=== PATIENT | female | born 1980 | race African-American/Black ===

== ENCOUNTER 2019-09-23 05:05 | Emergency (ER) | payer SELFPAY ==
[~2019-09-23] VITALS: Ht 180.3 cm; Wt 100.0 kg
[2019-09-23 05:08] VITALS: TEMP 98.4
[2019-09-23] MEDS ORDERED: ZOLOFT 100MG100 MG PO (05:14)
[2019-09-23] MEDS ORDERED: LAMICTAL200 MG PO (05:14)
[2019-09-23 05:43] LABS: BASO % 0.4 % (0.0-2.0); EOS # 0.1 (0.0-0.7); EOS % 1.8 % (0-4.0); GRAN # 3.7 (1.4-6.5); GRAN % 50.2 % (42.2-75.2); HEMATOCRIT 38.6 % (37.0-47.0); HEMOGLOBIN 12.5 g/dl (12.5-16.0); LYMPH # 2.9 (1.2-3.4); LYMPH % 39.7 % (20.0-51.0); MEAN CELL VOLUME 89 fl (80.0-100.0); MEAN CORPUSCULAR HEMOGLOBIN 29 pg (27.0-31.0); MEAN CORPUSCULAR HGB CONC 32 g/dl (33.0-37.0); MEAN PLATELET VOLUME 10.5 fl (7.4-10.4); MONO # 0.6 (0.1-0.6); MONO % 7.6 % (1.7-9.3); PLATELET COUNT 226 K/mm3 (130-400); RED BLOOD COUNT 4.33 M/mm3 (4.10-5.30); REDCELL DISTRIBUTION WIDTH-CV 13.6 % (11.5-14.5)
[2019-09-23 05:57] LABS: ALANINE AMINOTRANSFERASE 14 U/L (4-34); ALBUMIN 4.2 gm/dL (3.5-5.0); ALKALINE PHOSPHATASE 129 U/L (50-136); ANION GAP 6 mmol/L (7-16); AST,SGOT 23 U/L (15-37); BILIRUBIN,TOTAL 0.5 mg/dL (0.0-1.0); BLOOD UREA NITROGEN 12 mg/dL (7-17); C-REACTIVE PROTEIN 1.1 mg/dL (0.0-0.9); CARBON DIOXIDE 21 mmol/L (22-30); CHLORIDE 109 mmol/L (98-107); CREATININE, serum 0.76 (0.52-1.25); GLUCOSE 94 mg/dL (74-106); LIPASE 157 U/L (23-300); POTASSIUM 3.7 mmol/L (3.4-5.0); SODIUM 135 mmol/L (137-145); TOTAL PROTEIN 7.2 gm/dL (6.4-8.2)
[2019-09-23 06:06] LABS: TROPONIN-I < 0.012 ng/mL (0.000-0.035)
[2019-09-23 09:06] VITALS: BP 126/80; PULSE 77
== END 2019-09-23 09:12 | disposition home or self-care (01) ==
LOC: COL.ER 05:05
PROVIDERS: Emergency Medicine
DX: K21.9 Gastro-esophageal reflux disease without esophagitis (principal); R07.9 Chest pain, unspecified; F41.8 Other specified anxiety disorders; F17.210 Nicotine dependence, cigarettes, uncomplicated

== ENCOUNTER → 2019-09-29 | Outpatient (CLI) | payer SELFPAY ==
[~2019-09-29] MED LIST: LAMICTAL200 MG PO; ZOLOFT 100MG100 MG PO
== END ==
LOC: COL.VAS 08:41
DX: I07.1 Rheumatic tricuspid insufficiency (principal)

== ENCOUNTER 2020-03-29 17:05 | Emergency (ER) | payer SELFPAY ==
[~2020-03-29] VITALS: Ht 182.9 cm; Wt 90.9 kg
[2020-03-29 17:19] VITALS: BP 120/77; TEMP 97.4
[2020-03-29 19:46] LABS: COLLECTION METHOD CLEAN CATCH
[2020-03-29 20:03] LABS: MUCOUS Present /lpf; PH 6 (5-8); URINE APPEARANCE Hazy; URINE BACTERIA None Seen /hpf; URINE BILIRUBIN Negative (NEGATIVE); URINE BLOOD Negative (NEGATIVE); URINE COLOR Yellow; URINE GLUCOSE Negative (NEGATIVE); URINE KETONE Negative (NEGATIVE); URINE LEUKOCYTE ESTERASE 2+ (NEGATIVE); URINE NITRATE Negative (NEGATIVE); URINE PROTEIN(semi-quant) Negative (NEGATIVE)
[2020-03-29] MEDS ORDERED: FLAGYL500 MG PO (20:33)
[2020-03-29 20:41] VITALS: PULSE 82
== END 2020-03-29 20:44 | disposition home or self-care (01) ==
LOC: COL.ER 17:05
PROVIDERS: Emergency Medicine
DX: N76.0 Acute vaginitis (principal); A59.01 Trichomonal vulvovaginitis; Z32.02 Encounter for pregnancy test, result negative
CPT/HCPCS: J0696

== ENCOUNTER 2020-07-23 12:39 | Emergency (ER) | payer SELFPAY ==
[~2020-07-23] VITALS: Ht 182.9 cm; Wt 86.4 kg
[2020-07-23 12:39] VITALS: BP 120/83; TEMP 98.4
[~2020-07-23 12:39] MED LIST changes: +FLAGYL500 MG PO
[2020-07-23 13:30] LABS: BASO % 0.8 % (0.0-2.0); EOS # 0.1 (0.0-0.7); EOS % 2.6 % (0-4.0); GRAN # 2.8 (1.4-6.5); GRAN % 54.5 % (42.2-75.2); HEMATOCRIT 38.2 % (37.0-47.0); HEMOGLOBIN 12.5 g/dl (12.5-16.0); LYMPH # 1.8 (1.2-3.4); MEAN CELL VOLUME 99 fl (80.0-100.0); MEAN CORPUSCULAR HEMOGLOBIN 32 pg (27.0-31.0); MEAN CORPUSCULAR HGB CONC 33 g/dl (33.0-37.0); MEAN PLATELET VOLUME 10.7 fl (7.4-10.4); MONO # 0.4 (0.1-0.6); MONO % 6.9 % (1.7-9.3); PLATELET COUNT 271 K/mm3 (130-400); RED BLOOD COUNT 3.87 M/mm3 (4.10-5.30); REDCELL DISTRIBUTION WIDTH-CV 14.6 % (11.5-14.5)
[2020-07-23 13:36] LABS: BILIRUBIN,TOTAL 0.4 mg/dL (0.0-1.0); CREATININE, serum 0.77 (0.52-1.25); POTASSIUM 3.6 mmol/L (3.4-5.0); TOTAL PROTEIN 6.9 gm/dL (6.4-8.2)
[2020-07-23 14:19] LABS: COLLECTION METHOD CLEAN CATCH
[2020-07-23 14:34] LABS: MUCOUS Present /lpf; PH 6 (5-8); URINE APPEARANCE Hazy; URINE BACTERIA None Seen /hpf; URINE BILIRUBIN Negative (NEGATIVE); URINE BLOOD 1+ (NEGATIVE); URINE COLOR Yellow; URINE GLUCOSE Negative (NEGATIVE); URINE KETONE Negative (NEGATIVE); URINE LEUKOCYTE ESTERASE 2+ (NEGATIVE); URINE NITRATE Negative (NEGATIVE); URINE PROTEIN(semi-quant) Negative (NEGATIVE); URINE UROBILINOGEN Negative (NEGATIVE)
[2020-07-23] MEDS ORDERED: FLEXERIL 1010 MG/TAB PO (14:58)
[2020-07-23 15:08] VITALS: PULSE 84
== END 2020-07-23 15:12 | disposition home or self-care (01) ==
LOC: COL.ER 12:39
PROVIDERS: Nurse Practitioner
DX: S16.1XXA Strain of muscle, fascia and tendon at neck level, initial encounter (principal); S40.012A Contusion of left shoulder, initial encounter; F17.200 Nicotine dependence, unspecified, uncomplicated; V43.62XA Car passenger injured in collision with other type car in traffic accident, initial encounter

== ENCOUNTER 2020-12-29 04:18 | Inpatient (IN) | payer SELFPAY ==
[~2020-12-29] VITALS: Ht 180.3 cm; Wt 88.6 kg
[~2020-12-29 04:18] MED LIST changes: +FLEXERIL 1010 MG/TAB PO
[2020-12-29 05:15] LABS: BASO % 0.2 % (0.0-2.0); EOS # 0.1 (0.0-0.7); EOS % 0.7 % (0-4.0); GRAN # 6.3 (1.4-6.5); GRAN % 73.9 % (42.2-75.2); HEMOGLOBIN 11.6 g/dl (12.5-16.0); LYMPH # 1.4 (1.2-3.4); LYMPH % 16.5 % (20.0-51.0); MEAN CELL VOLUME 97 fl (80.0-100.0); MEAN CORPUSCULAR HEMOGLOBIN 32 pg (27.0-31.0); MEAN CORPUSCULAR HGB CONC 33 g/dl (33.0-37.0); MEAN PLATELET VOLUME 9.9 fl (7.4-10.4); MONO # 0.7 (0.1-0.6); MONO % 8.5 % (1.7-9.3); PLATELET COUNT 357 K/mm3 (130-400); RED BLOOD COUNT 3.68 M/mm3 (4.10-5.30); REDCELL DISTRIBUTION WIDTH-CV 14.4 % (11.5-14.5)
[2020-12-29 05:20] LABS: COLLECTION METHOD CLEAN CATCH
[2020-12-29 05:25] LABS: ALBUMIN 3.9 gm/dL (3.5-5.0); BILIRUBIN,TOTAL 0.4 mg/dL (0.0-1.0); CALCIUM 8.8 mg/dL (8.4-10.2); CREATININE, serum 0.73 (0.52-1.25); POTASSIUM 4.1 mmol/L (3.4-5.0); TOTAL PROTEIN 7.2 gm/dL (6.4-8.2)
[2020-12-29 05:25] LABS: MUCOUS Present /lpf; PH 5 (5-8); SQUAMOUS EPITHELIAL 0-2 /hpf; URINE APPEARANCE Clear; URINE BACTERIA None Seen /hpf; URINE BILIRUBIN Negative (NEGATIVE); URINE BLOOD 1+ (NEGATIVE); URINE COLOR Amber; URINE GLUCOSE Negative (NEGATIVE); URINE KETONE Negative (NEGATIVE); URINE LEUKOCYTE ESTERASE Negative (NEGATIVE); URINE NITRATE Positive (NEGATIVE); URINE PROTEIN(semi-quant) Negative (NEGATIVE); URINE UROBILINOGEN >=4.0 mg/dL (NEGATIVE); URINE WBC 0-2 /hpf
[2020-12-29 05:27] LABS: HEMATOCRIT 35.7 % (37.0-47.0)
[2020-12-29 08:00] VITALS: BP 113/67; PULSE 66; TEMP 97.5
--- NOTE | 2020-12-29 09:32 | NUR ---
Dr Ritchie here to see patient.
--- NOTE | 2020-12-29 11:30 | NUR ---
Patient alert and oriented, answers questions appropriately. See assessment. Abdomen soft, non tender, non distended. Bowel sounds active x4 quads. +Flatus. +Bowel movement. No c/o pain or discomfort. Requests diet. No other c/o at this time.
[2020-12-29 12:10] VITALS: BP 113/63; PULSE 76; TEMP 98.6
[2020-12-29 15:33] VITALS: BP 108/62; PULSE 84; TEMP 99.3
[2020-12-29 19:21] VITALS: BP 114/70; PULSE 81; TEMP 97.5
--- NOTE | 2020-12-29 22:23 | NUR ---
PT IN BED. ASKING FOR PAIN MEDS. LOWER ABD PAIN 03/06. TORADOL 30MG IVP AND MORPHINE 2MG IVP GIVEN AT THIS TIME. HAS PATENT IV SITE TO RIGHT FOREARM. IS ALERT AND ORIENTED X4. INDEPENDENT IN ROOM. DENIES NAUSEA, TAKING CLEAR LIQUIDS.
[2020-12-29 23:41] VITALS: BP 110/60; PULSE 83; TEMP 98.2
[2020-12-30 03:26] VITALS: BP 106/58; PULSE 81; TEMP 98.1
--- NOTE | 2020-12-30 05:29 | NUR ---
PT REPORTS LOWER ABD PAIN. MEDICATED WITH TORADOL 30MG IVP AND MORPHINE 2MG IVP AT THIS TIME.
[2020-12-30 07:23] LABS: BASO % 0.1 % (0.0-2.0); EOS # 0.1 (0.0-0.7); EOS % 0.8 % (0-4.0); GRAN # 5.6 (1.4-6.5); GRAN % 73.8 % (42.2-75.2); LYMPH # 1.2 (1.2-3.4); LYMPH % 15.6 % (20.0-51.0); MEAN CELL VOLUME 99 fl (80.0-100.0); MEAN CORPUSCULAR HGB CONC 32 g/dl (33.0-37.0); MEAN PLATELET VOLUME 10.5 fl (7.4-10.4); MONO # 0.7 (0.1-0.6); MONO % 9.3 % (1.7-9.3); PLATELET COUNT 288 K/mm3 (130-400); RED BLOOD COUNT 3.11 M/mm3 (4.10-5.30); REDCELL DISTRIBUTION WIDTH-CV 14.3 % (11.5-14.5)
[2020-12-30 07:24] LABS: HEMATOCRIT 30.7 % (37.0-47.0); HEMOGLOBIN 9.9 g/dl (12.5-16.0); MEAN CORPUSCULAR HEMOGLOBIN 32 pg (27.0-31.0)
[2020-12-30 07:27] LABS: CALCIUM 8.1 mg/dL (8.4-10.2); CREATININE, serum 0.69 (0.52-1.25); MAGNESIUM 2.1 mg/dL (1.6-2.3); POTASSIUM 3.5 mmol/L (3.4-5.0)
[2020-12-30 07:39] LABS: C-REACTIVE PROTEIN 16.2 mg/dL (0.0-0.9)
--- NOTE | 2020-12-30 08:30 | NUR ---
Patient sitting up in bed. Alert and oriented x 3. Assessment complete. Denies pain at this time. Denies further needs at this time.
[2020-12-30 08:55] VITALS: BP 111/57; PULSE 84; TEMP 99.1
[2020-12-30 12:27] VITALS: BP 118/74; PULSE 75; TEMP 97.9
--- NOTE | 2020-12-30 13:47 | NUR ---
Patient lives at home with her mother and a daughter. She also has an adult daughter "DALE" that she names as her emergency contact, #[phone]. Patient does not have any DPOA or living will and declines to fill one out at this time. Patient denies the use of any assistive devices or home medical equipement. The patient uses [facility] for health services; doesn't have any other primary care provider, and prefers [facility] for a pharmacy. Patient states cost of medications is a concern. She plans to discharge home with her family when able. DISCHARGE PLAN: HOME WITH SUPPORT
[2020-12-30 16:30] VITALS: BP 107/60; PULSE 84; TEMP 99
--- NOTE | 2020-12-30 18:14 | NUR ---
Patient doing well throughout the day. Showered independently. Has been up independently in room. Toradol given for pain x1 today. Denies pain at this time. Antibiotics and fluids infusing per orders.
[2020-12-30 21:20] VITALS: BP 120/82; PULSE 84; TEMP 98.4
--- NOTE | 2020-12-30 22:39 | NUR ---
MEDICATED WITH TORADOL 30MG IVP FOR PAIN TO LOWER ABD. IVF INFUSING TO RT FOREARM WITHOUT PROBLEM. INDEPENDENT IN ROOM.
--- NOTE | 2020-12-31 00:25 | NUR ---
PT REPORTS LOOSE STOOL. REPORTS PAIN TO LOWER ABD. MORPHINE 2MG IVP.
[2020-12-31 00:59] VITALS: BP 100/63; PULSE 72; TEMP 98.5
[2020-12-31 04:08] VITALS: BP 95/65; PULSE 65; TEMP 98.3
--- NOTE | 2020-12-31 06:00 | NUR ---
PT RESTING WELL.
[2020-12-31 07:45] VITALS: BP 117/55; PULSE 70; TEMP 98.4
[2020-12-31 11:49] VITALS: BP 134/77; BP 136/69; PULSE 79; PULSE 85; TEMP 98.2; TEMP 98.8
[2020-12-31] MEDS ORDERED: AMOXICILLIN 8751 TAB PO (13:48)
[2020-12-31] MEDS ORDERED: ZOFRAN ODT4 MG PO (13:49)
--- NOTE | 2020-12-31 14:44 | NUR ---
Discharge education provided to patient. Educated on when to call provider and follow op appointments. Patient educated on all new medications and medication safety. All questions answered. INT discontinued, catheter tip intact. Denies further needs at this time.
--- NOTE | 2020-12-31 15:05 | NUR ---
Patient ambulated out with surgical staff.
== END 2020-12-31 15:05 | disposition home or self-care (01) | DRG 392 ==
LOC: COL.ER 04:18 → SURG 08:05 → COL.ER 08:29 → SURG 12-31 15:05
PROVIDERS: Emergency Medicine; Internal Medicine; ADMIT Internal Medicine
DX: K57.20 Diverticulitis of large intestine with perforation and abscess without bleeding (principal); N39.0 Urinary tract infection, site not specified; F17.210 Nicotine dependence, cigarettes, uncomplicated; R11.2 Nausea with vomiting, unspecified; R91.1 Solitary pulmonary nodule
CPT/HCPCS: 99223-AI; 99232-AI; 99239; J1650; J1885; J2270; J2405; J2543; J7030; Q9967

== ENCOUNTER 2021-03-18 13:35 | Emergency (ER) | payer SELFPAY ==
[~2021-03-18] VITALS: Ht 180.3 cm; Wt 90.0 kg
[~2021-03-18 13:35] MED LIST changes: +AMOXICILLIN 8751 TAB PO; +ZOFRAN ODT4 MG PO
[2021-03-18 14:05] VITALS: BP 124/82; PULSE 75; TEMP 98.1
[2021-03-18] MEDS ORDERED: PROAIR HFA0.09 MG/AC IH (15:08)
== END 2021-03-18 15:15 | disposition home or self-care (01) ==
LOC: COL.ER 13:35
DX: J06.9 Acute upper respiratory infection, unspecified (principal); Z20.822 Contact with and (suspected) exposure to COVID-19

== ENCOUNTER → 2021-10-10 | Outpatient (CLI) | payer SELFPAY ==
[~2021-10-10] MED LIST changes: +PROAIR HFA0.09 MG/AC IH
== END ==
LOC: COL.RAD 06:54
DX: R10.31 Right lower quadrant pain (principal)

== ENCOUNTER 2023-07-04 23:02 | Emergency (ER) | payer SELFPAY ==
[~2023-07-04] VITALS: Ht 182.9 cm; Wt 88.6 kg
[~2023-07-04 23:02] MED LIST changes: +BACTRIM DS 8001 TAB PO; +CIPRO 500MG TA500 MG PO; +DOXYCYCLINE 10100 MG PO; +NORCO 325 MG-51 TAB PO; +PERCOCET 325 MG1 TA2 PO
[2023-07-05] MEDS ORDERED: HYDROmorphone 0.5 MG/0.5 ML SYRINGE IV ONE ×3 (00:45→01:00)
[2023-07-05] MEDS ORDERED: diazePAM 5 MG TAB PO ONE (00:45)
[2023-07-05 02:52] VITALS: BP 117/63; PULSE 91; TEMP 98
== END 2023-07-05 02:55 | disposition home or self-care (01) ==
LOC: COL.ER 23:02
DX: M54.50 Low back pain, unspecified (principal); F17.210 Nicotine dependence, cigarettes, uncomplicated; X50.0XXA Overexertion from strenuous movement or load, initial encounter; Y93.F2 Activity, caregiving, lifting; Y99.0 Civilian activity done for income or pay
CPT/HCPCS: J1170